=== PATIENT | male | born 1995 | race Caucasian/White ===

== ENCOUNTER 2025-03-27 09:48 | Emergency (ER) | payer OTHER ==
[2025-03-27 10:34] LABS: Absolute Lymphocytes (CBC) 1.4 K/uL (0.7-4.9); Hematocrit 44.8 % (39.6-49.0); Hemoglobin 15.1 g/dL (13.6-17.9); MCH 27.6 pg (27.0-35.0); MCHC 33.7 g/dL (32.0-36.0); MCV 82.0 fL (80-100); MPV 9.2 fL (7.6-11.3); Nucleated RBC Absolute Count 0.0 (0-0); Nucleated Red Blood Cells % 0.1 % (0-0); RBC Red Blood Cell Count 5.46 M/uL (4.33-5.43); White Blood Count 6.00 thou/uL (4.3-10.9)
[2025-03-27 10:46] LABS: PT Prothrombin Time 13.2 SECONDS (10-13.0); Protime INR 1.17
--- NOTE | 2025-03-27 10:46 | RAD REPORT ---
EXAM: Chest Single View HISTORY: 29 years Male CHEST PAIN COMPARISON: No prior exams FINDINGS: LUNGS/PLEURA: The lungs are clear. No pleural effusions or pneumothorax. No pulmonary edema. CARDIAC/MEDIASTINUM: The cardiac silhouette is within normal limits. UPPER ABDOMEN: No significant abnormality. BONES: No acute abnormality. LINES/TUBES/OTHER: N/A IMPRESSION: No evidence of acute cardiopulmonary disease.
[2025-03-27 10:51] LABS: Anion Gap 8.6 mEq/L (5.0-15.0); BUN Blood Urea Nitrogen 19.0 mg/dL (7-18); Glucose Level 105.0 mg/dL (74-106); Potassium 3.6 mEq/L (3.5-5.1); Troponin High Sensitivity 5.2 pg/mL (<58.9)
--- NOTE | 2025-03-27 11:24 | RAD REPORT ---
EXAMINATION: Head Brain Wo Cont CLINICAL INDICATION: Male, 29 years old.WEAKNESS TECHNIQUE: Axial CT images from the skull base to the vertex without intravenous contrast. Coronal an d sagittal reformatted images were created from the data set. One or more of the following dose reduction techniques were used: Automated exposure control, adjustment of the mA and/or kV according to patient size, and/or iterative reconstruction. Unless otherwise specified, incidental findings do not require dedicated imaging follow-up. [id number]. COMPARISON: No prior exams FINDINGS: INTRACRANIAL: No acute intracranial hemorrhage. No acute large vascular territory infarct. No hydro cephalus. No mass effect or midline shift. No significant white matter disease. VASCULATURE: No visualized abnormalities in the arteries or dural venous sinuses. SCALP/SKULL: No calvarial fracture identified. No acute soft tissue abnormality. SINUSES: The visualized paranasal sinuses are mostly clear. No significant mastoid fluid. IMPRESSION: No acute intracranial abnormality.
--- NOTE | 2025-03-27 11:25 | RAD REPORT ---
EXAMINATION: Neck Angio CLINICAL INDICATION: Male, 29 years old. Trauma;Numbness TECHNIQUE: Axial CT images were obtained from the aortic arch to the skull base after intravenous con trast utilizing angiographic protocol with 3D post-processing (maximum intensity projection images, volume rendered images and/or shaded surface rendered images). One or more of the following dose redu ction techniques were used: Automated exposure control, adjustment of the mA and/or kV according to patient size, and/or iterative reconstruction. Unless otherwise specified, incidental findings do not require dedicated imaging follow-up. [id number]. NASCET criteria used. Mild 0-49% stenosis Moderate 50-69% stenosis Severe 70-99% stenosis COMPARISON: No prior exam. FINDINGS: AORTA: Normal RIGHT: - CCA: No flow limiting stenosis (>= 50%). No dissection. - ICA: No flow limiting stenosis (>= 50%). No dissection. - ECA: No flow limiting stenosis (>= 50%). No dissection. LEFT: - CCA: No flow limiting stenosis (>= 50%). No dissection. - ICA: No flow limiting stenosis (>= 50%). No dissection. - ECA: No flow limiting stenosis (>= 50%). No dissection. VERTEBRAL: Patent SOFT TISSUE: No significant neck soft tissue abnormalities. The visualized lung apices are clear. 3D images confirm these findings. IMPRESSION: No arterial dissection or stenosis identified within the neck.
--- NOTE | 2025-03-27 11:25 | RAD REPORT ---
EXAMINATION: Head angio CLINICAL INDICATION: Male, 29 years old. Weakness;Slurred speech TECHNIQUE: Axial CT images were obtained through the head after intravenous contrast utilizing angiog raphic protocol with 3D post-processing (maximum intensity projection images, volume rendered images and/or shaded surface rendered images). One or more of the following dose reduction technique s were used: Automated exposure control, adjustment of the mA and/or kV according to patient size, and/or iterative reconstruction. Unless otherwise specified, incidental findings do not require dedic ated imaging follow-up. COMPARISON: No prior exam. FINDINGS: RIGHT: ICA: No aneurysm, stenosis, or occlusion. LISETH: No aneurysm, stenosis, or occlusion. MCA: No aneurysm, stenosis, or occlusion. IRON SETTER: No aneurysm, stenosis, or occlusion. LEFT: ICA: No aneurysm, stenosis, or occlusion. LISETH: No aneurysm, stenosis, or occlusion. MCA: No aneurysm, stenosis, or occlusion. IRON SETTER: No aneurysm, stenosis, or occlusion. Vertebrobasilar: The vertebral arteries are patent. The basilar artery is normal in appearance. 3D images confirm these findings. IMPRESSION: No occlusion, aneurysm, or hemodynamically significant stenosis identified.
[2025-03-27 13:37] LABS: METHAMPHETAM NEGATIVE (NEGATIVE); THC Cannibis NEGATIVE (NEGATIVE)
--- NOTE | 2025-03-27 13:48 | EDPHYS ---
Physician Documentation [facility] Name: Jaxon Singleton Age: 29 yrs Sex: Male : 1995 Arrival Date: 03/27/2025 Time: 09:48 Bed 15 Private MD: ED Physician Wali Baca HPI: 03/27 10:07 This 29 yrs old Male presents to ER via Ambulatory with complaints of S/S of dr5 Possible Stroke. 10:07 Onset: The symptoms/episode began/occurred 9 day(s) ago. Patient is a 29-year-old male dr5 with no past medical history coming in with 9 days of left-sided facial numbness and facial droop. Patient reports he went to urgent care and received antibiotics and steroid injection which alleviated symptoms. Girlfriend at bedside speaks for him throughout entire interview and patient speaks in clear sentences when asked direct questions.. Historical: - Allergies: 10:00 No Known Allergies; db - PMHx: 10:00 None; db - Immunization history:: Adult Immunizations unknown. - Infectious Disease History:: Denies. - Social history:: Smoking status: Patient reports the use of cigarette tobacco products. ROS: 10:07 Constitutional: as per hpi dr5 Exam: 10:07 Constitutional: The patient appears in no acute distress, dr5 10:07 Head/face: Exam is negative for acute changes, 10:07 Eyes: Exam is negative for acute changes, 10:07 Chest/axilla: Exam negative for acute changes, Inspection: normal, Palpation: is dr5 normal, no acute changes, 10:07 Cardiovascular: Exam negative for acute changes, Rate: normal, 10:07 Respiratory: Exam negative for acute changes, the patient does not display signs of respiratory distress, 10:07 Abdomen/GI: Exam negative for acute changes, Inspection: abdomen appears normal, 10:07 Back: Exam negative for pain, is absent, 10:07 Neuro: Orientation: is normal, appropriate for stated age, Mentation: is normal, appropriate for stated age, Memory: is normal, appropriate for stated age, Cranial nerves: Cerebellar function: is grossly normal, is grossly normal based on the patient's age, Motor: is normal, Sensation: is normal, no obvious gross deficits, appropriate Gait: not applicable Deep tendon reflexes are normal, Babinski testing is normal, 11:52 Radiologist reports: No acute abnormality dr5 11:52 Skin: Exam negative for Appearance: normal except for affected area, Color: normal in color, pink, 15:27 Constitutional: This is a well developed, well nourished patient who is awake, alert, dr5 and in no acute distress. Vital Signs: 09:56 BP 140 / 83; Pulse 74; Resp 18; Temp 98.4; Pulse Ox 100% ; Weight 107.95 kg; Height 6 db ft. 3 in. ; 10:33 BP 120 / 77; Pulse 90; Resp 18; Pulse Ox 99% on R/A; db 11:30 BP 118 / 64; Pulse 60; Resp 16; Pulse Ox 100% ; db 12:00 BP 102 / 57; Pulse 61; Resp 16; Pulse Ox 100% on R/A; db 13:00 BP 97 / 43; Pulse 80; Resp 16; db 13:30 BP 121 / 70; Pulse 68; Resp 16; Pulse Ox 100% ; db 09:56 Body Mass Index 29.75 (107.95 kg, 190.5 cm) db NIH Stroke Scale Scores: 10:05 NIHSS Score: 1 db 10:07 NIHSS Score: 1 dr5 MDM: 10:06 Medical Screening Exam initiated dr5 15:24 Differential diagnosis: CVA, TIA, paralysis, drug effects, Anemia, Vo's Palsy, dr5 Shingles, Electrolyte Abnormality. Data reviewed: vital signs, nurses notes, lab test result(s), cardiac enzymes, troponin i, CBC, white blood cell count, hemoglobin, hematocrit, platelets, electrolytes, sodium, potassium, chloride, serum bicarbonate, BUN, creatinine, serum glucose, urine drug screen, EKG, radiologic studies, CT scan, plain films. Consideration of Admission/Observation Escalation of care including admission/observation considered. Escalation considered if patient found to have LVO or abnormality on CT scan or blood work.. I considered the following discharge prescriptions or medication management in the emergency department I discussed and recommended Over The Counter medications, Medications were administered in the Emergency Department. See MAR. Independent interpretation of the following test(s) in the Emergency Department X-Ray: My interpretation is Independent interpretation of chest x-ray does not reveal infiltrates concerning for pneumonia. Historians other than the Patient: Spouse/Significant Other: Significant other. Care significantly affected by the following Social Determinants of Health: Poor access to healthcare and/or lack of insurance, Poor access to transportation, Problems related to employment. Counseling: I had a detailed discussion with the patient and/or guardian regarding the historical points, exam findings, and any diagnostic results supporting the discharge/admit diagnosis, the presence of at least one elevated blood pressure reading (>120/80) during this emergency department visit, lab results, radiology results, the need for outpatient follow up, for definitive care, a family practitioner, to return to the emergency department if symptoms worsen or persist or if there are any questions or concerns that arise at home. Special discussion: I discussed with the patient/guardian in detail that at this point there is no indication for admission to the hospital. It is understood, however, that if the symptoms persist or worsen the patient needs to return immediately for re-evaluation. Based on the history and exam findings, there is no indication for further emergent testing or inpatient evaluation. I discussed with the patient/guardian the need to see the neurologist for further evaluation of the symptoms. ED course: Will have patient follow-up with Dr. Ortiz this week. No abnormality noted on CT head without contrast or with contrast. UDS was negative. All blood work was negative. EKG was normal. Troponin was normal. Patient reports that left side of face is painful and at the same time numb. Patient facial droop has resolved and speaking in full sentences. All labs and CAT scans printed and given to patient take with him Dr. Anne this week. Vital signs stable. Patient ambulatory steady gait. Strict ER precautions given. 03/27 10:06 Order name: Basic Metabolic Panel; Complete Time: 10:54 dr5 03/27 10:06 Order name: CBC with Diff; Complete Time: 10:40 dr5 03/27 10:06 Order name: PT-INR; Complete Time: 10:51 dr5 03/27 10:06 Order name: Troponin HS; Complete Time: 10:54 dr5 03/27 10:06 Order name: UDS; Complete Time: 13:39 dr5 03/27 10:35 Order name: Glucose, Ancillary Testing; Complete Time: 10:40 EDMS 03/27 10:06 Order name: XRAY Chest (1 view); Complete Time: 10:46 dr5 03/27 10:06 Order name: CT Head Brain wo Cont; Complete Time: 11:25 dr5 03/27 10:06 Order name: CT Head Angio; Complete Time: 03/27 10:06 Order name: CT Neck Angio; Complete Time: 03/27 10:06 Order name: EKG; Complete Time: 03/27 10:06 Order name: Cardiac monitoring; Complete Time: 03/27 10:06 Order name: EKG - Nurse/Tech; Complete Time: 03/27 10:06 Order name: IV Saline Lock; Complete Time: 03/27 10:06 Order name: Labs collected and sent; Complete Time: 03/27 10:06 Order name: O2 Per Protocol; Complete Time: 03/27 10:06 Order name: O2 Sat Monitoring; Complete Time: EC:36 Rate is 62 beats/min. Rhythm is regular. QRS [place] is Normal. NE interval is normal at dr5 148 msec. QRS interval is normal at 90 msec. QT interval is normal at 384 msec. Clinical impression: Normal ECG and No evidence of ischemia. Administered Medications: No medications were administered Disposition: 15:19 Co-signature as Attending Physician, Wali Baca MD I reviewed the patient's care rn provided by the Advanced Practice Provider and agree with the diagnosis and treatment plan. Disposition Summary: 03/27/25 13:47 Discharge Ordered Notes: Location: Home dr5 Condition: Stable dr5 Diagnosis - Anesthesia of skin dr5 Followup: dr5 - With: Eliu Ortiz MD - When: 1 - 2 days - Reason: Recheck today's complaints, Continuance of care, Re-evaluation by your physician Followup: dr5 - With: Emergency Department - When: As needed - Reason: Worsening of condition Discharge Instructions: - Discharge Summary Sheet dr5 - Neuropathic Pain dr5 Forms: - Work release form dr5 - Medication Reconciliation Form dr5 - Patient Portal Instructions dr5 - Leadership Thank You Letter dr5 Critical care time excluding procedures: 15:27 Critical care time: Bedside Care: 25 minutes, Consultation: 5 minutes, Family dr5 Intervention: 5 minutes. Total time: 35 minutes NIH Stroke Scale - NIH Stroke Score Date: 03/27/2025 Time: 10:05 Total Score = 1 10. Dysarthria (speech clarity - read or repeat words) - 0(Normal) 11. Extinction and Inattention (visual/tactile/auditory/spatial/personal) - 0(No abnormality) 1a. Level of Consciousness (LOC) - 0(Alert) 1b. Level of Consciousness (LOC) (Month \T\ Age) - 0(Both) 1c. LOC Commands (Open \T\ Closes Eyes/Documentation Lead) - 0(Both) 2. Best Gaze (Lateral Gaze Paresis) - 0(Normal) 3. Visual Field Loss - 0(No visual loss) 4. Facial Palsy - 1(Minor Paralysis) 5a. Left Arm: Motor (10-second hold) - 0(No drift) 5b. Right Arm: Motor (10-second hold) - 0(No drift) 6a. Left Leg: Motor (5-second hold - always test supine) - 0(No drift) 6b. Right Leg: Motor (5-second hold - always test supine) - 0(No drift) 7. Limb Ataxia (finger/nose \T\ heel/hennessy - test with eyes open) - 0(Absent) 8. Sensory Loss (pinprick arms/legs/face) - 0(Normal) 9. Best Language: Aphasia (description/naming/reading) - 0(No aphasia) Initials: db NIH Stroke Scale - NIH Stroke Score Date: 03/27/2025 Time: 10:07 Total Score = 1 10. Dysarthria (speech clarity - read or repeat words) - 0(Normal) 11. Extinction and Inattention (visual/tactile/auditory/spatial/personal) - 0(No abnormality) 1a. Level of Consciousness (LOC) - 0(Alert) 1b. Level of Consciousness (LOC) (Month \T\ Age) - 0(Both) 1c. LOC Commands (Open \T\ Closes Eyes/Documentation Lead) - 0(Both) 2. Best Gaze (Lateral Gaze Paresis) - 0(Normal) 3. Visual Field Loss - 0(No visual loss) 4. Facial Palsy - 1(Minor Paralysis) 5a. Left Arm: Motor (10-second hold) - 0(No drift) 5b. Right Arm: Motor (10-second hold) - 0(No drift) 6a. Left Leg: Motor (5-second hold - always test supine) - 0(No drift) 6b. Right Leg: Motor (5-second hold - always test supine) - 0(No drift) 7. Limb Ataxia (finger/nose \T\ heel/hennessy - test with eyes open) - 0(Absent) 8. Sensory Loss (pinprick arms/legs/face) - 0(Normal) 9. Best Language: Aphasia (description/naming/reading) - 0(No aphasia) Initials: dr5 Signatures: Dispatcher [employer] Wali Aguila MD MD rn Benton, Danielle, RN RN db Rhodes, Dustin, RICE FARMER-C RICE FARMER-Cdr5 Corrections: (The following items were deleted from the chart) 11:53 10:07 Neuro: Orientation: is normal, appropriate for stated age, Mentation: is dr5 normal, appropriate for stated age, Memory: is normal, appropriate for stated age, Cranial nerves: Cerebellar function: is grossly normal, is grossly normal based on the patient's age, Motor: is normal, Sensation: is normal, no obvious gross deficits, appropriate Gait: not applicable dr5
--- NOTE | 2025-03-27 13:48 | ER ---
Nurse's Notes [facility] Name: Jaxon Singleton Age: 29 yrs Sex: Male : 1995 Arrival Date: 03/27/2025 Time: 09:48 Bed 15 Private MD: Diagnosis: Anesthesia of skin Presentation: 03/27 09:56 Chief complaint: Patient states: LEFT FACIAL NUMBNESS, TINGLING SINCE LAST FRIDAY 9 db DAYS AGO. WENT TO URGENT CARE THEN AND WAS TOLD TO GO TO ER. STATES DID NOT WANT TO COME TO THE ER. CAME TODAY DUE TO FEELS LIKE SYMPTOMS ARE GETTING WORSE. TOLD TO START TAKING BLOOD THINNER LAST YEAR FOR UNKNOWN REASON. TOLD HAS LOW HR. STATES UNABLE TO AFFORD BLOOD THINNERS. Coronavirus screen: Client denies travel out of the [place] in the last 14 days. At this time, the client does not indicate any symptoms associated with coronavirus-19. Ebola Screen: Patient negative for fever greater than or equal to 101.5 degrees Fahrenheit, and additional compatible Ebola Virus Disease symptoms Patient denies exposure to infectious person. Patient denies travel to an Ebola-affected area in the 21 days before illness onset. No symptoms or risks identified at this time. No acute neurological deficit is noted. Pre-hospital glucose is not applicable to this patient. Initial Sepsis Screen: Does the patient meet any 2 criteria? No. Patient's initial sepsis screen is negative. Does the patient have a suspected source of infection? No. Patient's initial sepsis screen is negative. Risk Assessment: Do you want to hurt yourself or someone else? Patient reports no desire to harm self or others. Onset of symptoms was March 18, 2025. 09:56 Method Of Arrival: Ambulatory db 09:56 Acuity: PLACIDO 2 db Triage Assessment: 09:56 The onset of the patients symptoms was March 18, 2025 at 06:00. General: Appears in db no apparent distress. comfortable, Behavior is calm, cooperative. Pain: Denies pain. Neuro: Reports numbness in face. Respiratory: Airway is patent Respiratory effort is even, unlabored, Respiratory pattern is regular, symmetrical. Stroke Activation: Symptom onset > 6 hours Physician: ED Attending; Name: ; Notified At: ; Arrived At: Physician: Mid-Level Provider; Name: ; Notified At: ; Arrived At: Physician: [not used]; Name: ; Notified At: ; Arrived At: Physician: [not used]; Name: ; Notified At: ; Arrived At: Physician: [not used]; Name: ; Notified At: ; Arrived At: Historical: - Allergies: 10:00 No Known Allergies; db - PMHx: 10:00 None; db - Immunization history:: Adult Immunizations unknown. - Infectious Disease History:: Denies. - Social history:: Smoking status: Patient reports the use of cigarette tobacco products. Screenin:47 [facility] ED Fall Risk Assessment (Adult) History of falling in the last 3 months, db including since admission No falls in past 3 months (0 pts) Confusion or Disorientation No (0 pts) Intoxicated or Sedated No (0 pts) Impaired Gait No (0 pts) Mobility Assist Device Used No (0 pt) Altered Elimination No (0 pt) Score/Fall Risk Level 0 - 2 = Low Risk Oriented to surroundings, Maintained a safe environment. Abuse screen: Denies threats or abuse. Denies injuries from another. Nutritional screening: No deficits noted. Tuberculosis screening: No symptoms or risk factors identified. Assessment: 10:00 Cascade Swallow Protocol Notified: Kuldip Holland LIBRARY CIRCULATION TECHNICIAN-C. db 10:05 VAN Scoring: Arm Drift: Patients demonstrates NO arm weakness. Patient is VAN Negative. db Visual Disturbance: No visual disturbance noted. Aphasia: No aphasia noted. Neglect: No neglect noted. Cascade Swallow Protocol Exclusion Criteria: No thin liquids due to preexisting dysphagia/baseline modified diet thickened liquids No Brief Cognitive Screen What is your name? Normal, Where are you right now? Normal, What year is it? Normal. Oral Mechanism Examination Facial Symmetry: Normal, Motion: Normal, Lip Closure: Normal, Oral Mechanism Result: Normal. 3 oz Water Swallow Challenge: Pt able to drink all water without stopping, coughing, choking or throat clearing: Yes Result: PASS. TNKase (Tenecteplase) Screening: Not Applicable. General: Appears. 10:46 Reassessment: Patient appears in no apparent distress at this time. Patient and/or db family updated on plan of care and expected duration. Pain level reassessed. Patient is alert, oriented x 3, equal unlabored respirations, skin warm/dry/pink. General: Appears in no apparent distress. comfortable, Behavior is calm, cooperative. Neuro: Level of Consciousness is awake, alert, obeys commands, Oriented to person, place, time, situation. Respiratory: Airway is patent Respiratory effort is even, unlabored, Respiratory pattern is regular, symmetrical. 12:30 Reassessment: Patient appears in no apparent distress at this time. Patient and/or db family updated on plan of care and expected duration. Pain level reassessed. Patient is alert, oriented x 3, equal unlabored respirations, skin warm/dry/pink. 13:57 Reassessment: Patient appears in no apparent distress at this time. Patient and/or db family updated on plan of care and expected duration. Pain level reassessed. Patient is alert, oriented x 3, equal unlabored respirations, skin warm/dry/pink. Vital Signs: 09:56 BP 140 / 83; Pulse 74; Resp 18; Temp 98.4; Pulse Ox 100% ; Weight 107.95 kg; Height 6 db ft. 3 in. ; 10:33 BP 120 / 77; Pulse 90; Resp 18; Pulse Ox 99% on R/A; db 11:30 BP 118 / 64; Pulse 60; Resp 16; Pulse Ox 100% ; db 12:00 BP 102 / 57; Pulse 61; Resp 16; Pulse Ox 100% on R/A; db 13:00 BP 97 / 43; Pulse 80; Resp 16; db 13:30 BP 121 / 70; Pulse 68; Resp 16; Pulse Ox 100% ; db 09:56 Body Mass Index 29.75 (107.95 kg, 190.5 cm) db NIH Stroke Scale Scores: 10:05 NIHSS Score: 1 db 10:07 NIHSS Score: 1 dr5 ED Course: 09:51 Patient arrived in ED. al6 09:56 Arm band placed on Patient placed in an exam room. db 10:03 Kuldip Holland FNP-C is PHCP. dr5 10:03 Wali Baca MD is Attending Physician. dr5 10:09 Alfreda Soni, SEGUNDO is Primary Nurse. db 10:13 Triage completed. db 10:20 Inserted saline lock: 20 gauge in right antecubital area, using aseptic technique. db Blood collected. Flushed with 10 mL NS. 10:38 XRAY Chest (1 view) In Process Unspecified. EDMS 11:11 CT Head Brain wo Cont In Process Unspecified. EDMS 11:13 CT Head Angio In Process Unspecified. EDMS 11:13 CT Neck Angio In Process Unspecified. EDMS 13:04 Patient has correct armband on for positive identification. Bed in low position. Call db light in reach. Side rails up X 1. Pulse ox on. NIBP on. Warm blanket given. Pillow given. 13:47 Eliu Ortiz MD is Referral Physician. dr5 13:51 IV discontinued, intact, bleeding controlled, No redness/swelling at site. Pressure rk3 dressing applied. 13:57 Provided Education on: DISCHARGE AND FOLLOWUP. db 13:57 No provider procedures requiring assistance completed. db Administered Medications: No medications were administered Medication: 10:47 VIS not applicable for this client. db Outcome: 13:47 Discharge ordered by . dr5 13:57 Discharged to home ambulatory, with family, db 13:57 Condition: stable 13:57 Discharge instructions given to patient, family, Instructed on discharge instructions, follow up and referral plans. 14:00 Patient left the ED. db NIH Stroke Scale - NIH Stroke Score Date: 03/27/2025 Time: 10:05 Total Score = 1 10. Dysarthria (speech clarity - read or repeat words) - 0(Normal) 11. Extinction and Inattention (visual/tactile/auditory/spatial/personal) - 0(No abnormality) 1a. Level of Consciousness (LOC) - 0(Alert) 1b. Level of Consciousness (LOC) (Month \T\ Age) - 0(Both) 1c. LOC Commands (Open \T\ Closes Eyes/Caustic Preparer) - 0(Both) 2. Best Gaze (Lateral Gaze Paresis) - 0(Normal) 3. Visual Field Loss - 0(No visual loss) 4. Facial Palsy - 1(Minor Paralysis) 5a. Left Arm: Motor (10-second hold) - 0(No drift) 5b. Right Arm: Motor (10-second hold) - 0(No drift) 6a. Left Leg: Motor (5-second hold - always test supine) - 0(No drift) 6b. Right Leg: Motor (5-second hold - always test supine) - 0(No drift) 7. Limb Ataxia (finger/nose \T\ heel/hennessy - test with eyes open) - 0(Absent) 8. Sensory Loss (pinprick arms/legs/face) - 0(Normal) 9. Best Language: Aphasia (description/naming/reading) - 0(No aphasia) Initials: db NIH Stroke Scale - NIH Stroke Score Date: 03/27/2025 Time: 10:07 Total Score = 1 10. Dysarthria (speech clarity - read or repeat words) - 0(Normal) 11. Extinction and Inattention (visual/tactile/auditory/spatial/personal) - 0(No abnormality) 1a. Level of Consciousness (LOC) - 0(Alert) 1b. Level of Consciousness (LOC) (Month \T\ Age) - 0(Both) 1c. LOC Commands (Open \T\ Closes Eyes/Caustic Preparer) - 0(Both) 2. Best Gaze (Lateral Gaze Paresis) - 0(Normal) 3. Visual Field Loss - 0(No visual loss) 4. Facial Palsy - 1(Minor Paralysis) 5a. Left Arm: Motor (10-second hold) - 0(No drift) 5b. Right Arm: Motor (10-second hold) - 0(No drift) 6a. Left Leg: Motor (5-second hold - always test supine) - 0(No drift) 6b. Right Leg: Motor (5-second hold - always test supine) - 0(No drift) 7. Limb Ataxia (finger/nose \T\ heel/hennessy - test with eyes open) - 0(Absent) 8. Sensory Loss (pinprick arms/legs/face) - 0(Normal) 9. Best Language: Aphasia (description/naming/reading) - 0(No aphasia) Initials: dr5 Signatures: Dispatcher [employer] Alfreda Fountain RN RN db Rhodes, Dustin, CHANDAN-Solitario LIBRARY CIRCULATION TECHNICIAN-5 Elsa Olmstead Rozana [id number]
[2025-03-27 14:24] VITALS: TEMP 98.4
[2025-03-27 14:31] VITALS: O2SAT 100
[2025-03-27 14:34] VITALS: BP 121/70
== END 2025-03-27 14:00 | disposition home or self-care (01) ==
LOC: ER 09:48
DX: R20.0 Anesthesia of skin (principal); R29.810 Facial weakness; Z72.0 Tobacco use
CPT/HCPCS: 93005; 85025; 80048; 36415; 85610; 82947; 84484; 80307; 70450; 70496; 70498; 71045; 99284; Q9967